=== PATIENT | male | born 1960 | race Caucasian/White ===

== ENCOUNTER 2018-12-07 11:35 | Observation (INO) ==
[2018-12-07] MEDS ORDERED: ALBUTEROL SULFATE/IPRATROPIUM 3 ML NEBU IH ONE (11:58)
--- NOTE | 2018-12-07 12:00 | ERNOTE ---
Dyspnea - General Presenting Symptoms: shortness of breath Time Seen by Provider: 12/07/18 11:50 Source: patient Exam Limitations: no limitations - Immun/Allergies/Home Medications Immunizations: IMMUNIZATION HX Immunizations Up to Date Yes History of Influenza Vaccine No Hx Pneumococcal Vaccination No Allergies/Adverse Reactions: Allergies No Known Allergies Allergy (Verified 12/07/18 14:58) Home Medications: HOME MEDICATIONS Baclofen 20 mg PO BID 04/26/17 [Last Taken Unknown] Sennosides [Senokot] 17.2 mg PO DAILY 04/26/17 [Last Taken Unknown] Baclofen 40 mg PO 1200 05/05/17 [Last Taken Unknown] wheelchair See Dose Instructions .ROUTE .MEDSUPPLY #1 ea 06/01/18 [Last Taken Unknown] tiZANidine HCL [Tizanidine HCl] 8 mg PO HS 06/14/18 [Last Taken Unknown] quetiapine 25 mg tablet 25 mg PO HS #90 tab 06/18/18 [Last Taken Unknown] hydrocodone 5 mg-acetaminophen 325 mg tablet 1 tab PO Q6H PRN #60 tab 07/03/18 [Last Taken Unknown] clopidogrel 75 mg tablet 75 mg PO DAILY #90 tab 07/16/18 [Last Taken Unknown] escitalopram 10 mg tablet 10 mg PO DAILY #90 tab 07/16/18 [Last Taken Unknown] hydrochlorothiazide 12.5 mg tablet 12.5 mg PO DAILY #90 tab 07/16/18 [Last Taken Unknown] warfarin 3 mg tablet 3 mg PO .Monday tab 08/13/18 [Last Taken Unknown] warfarin 5 mg tablet 5 mg PO 6XW #72 tab 08/13/18 [Last Taken Unknown] atorvastatin 40 mg tablet 40 mg PO DAILY #90 tab 09/12/18 [Last Taken Unknown] amlodipine 5 mg tablet 5 mg PO DAILY #30 tab 11/19/18 [Last Taken Unknown] Pregabalin [Lyrica] 100 mg PO BID 12/07/18 [Last Taken Unknown] - History of Present Illness Narrative: Patient is wheel chair bound since having a stroke two years ago. He now has had a productive cough and increasing shortness of breath for 3-4 days, did not have the flue shot. He went to the walk in clinic and was send to the ER as his O2 sat in the low 80%. He is a current smoker, has no prior diagnosis of lung disease He has been on coumadin since his CVA, INR was therapeutic yesterday Initiating event: Reports: upper resp illness Frequency of episodes: Reports: no prior episodes Modifying Factors - (Improves): Reports: nothing Modifying Factors (Worsens): Reports: activity Associated Symptoms-Dyspnea: Reports: fever/chills, cough, wheezing. Denies: c hest pain/discomfort Prior Treatment: Denies: recently seen, currently on antibiotics Review of Systems - Review of Systems Constitutional: Present: chills, malaise. Absent: recent illness ENT: Present: nose congestion. Absent: sore throat Respiratory: Present: See HPI, shortness of breath, cough Cardiology: Absent: chest pain Gastrointestinal/Abdominal: Absent: nausea, vomiting, abdominal pain Genitourinary: Present: no symptoms reported Musculoskeletal: Present: no symptoms reported Neurological: Present: weakness - chronic Medical History (Last Reviewed 12/07/18 @ 12:06 by Josey Ernandez MD) CVA (cerebral vascular accident) Onset Date: ~07/2016 Nerve pain Onset Date: Unknown Pulmonary embolism Onset Date: ~08/2016 Surgical History: Surgical History (Last Reviewed 12/07/18 @ 12:06 by Josey Ernandez MD) History of back surgery Onset Date: Unknown Family History: Family History (Last Reviewed 12/07/18 @ 14:58 by Mckenzie Royal RN) Father Heart disease Heart attack Diabetes Mother Alzheimers disease Myocardial infarction Heart disease Brother Diabetes Sister Myocardial infarction Social History: Preferred Language Croatian Do you have any pentecostal or No cultural preference? Smoking Status Current every day smoker Have you smoked in the past 12 Yes months Do you dip or chew tobacco No Alcohol Use rarely Drug Use none (Last Reviewed 12/07/18 @ 11:09 by Sowmya Gonzales RN) No Social History Section defined Physical Exam - Physical Exam General Appearance: Present: wd/wn, alert, mild distress, anxious Eye Exam: Normal inspection: bilateral Ears, Nose, Throat: Present: normal ENT inspection, normal pharynx Neck: Present: normal inspection Respiratory: Present: decreased breath sounds, expiration (prolonged), wheezing - more on right than left Cardiovascular/Chest: Present: regular rate, rhythm, no murmur Gastrointestinal/Abdominal: Present: normal bowel sounds, nontender Extremity Exam: Present: no edema Neurological Exam: Present: alert, oriented, normal mood/affect Skin Exam: Present: normal color, warm/dry Progress - Results and Orders Patient's Lab Results:: I have reviewed the patient's lab results. - Vital Signs Patient's Vital Signs:: I have reviewed the patient's vital signs. Vital Signs: Vital Signs 12/07/18 11:53 Temperature 37.9 C Pulse Rate 88 Respiratory Rate 20 Blood Pressure 140/77 O2 Sat by Pulse Oximetry 80 L - EKG EKG #1 EKG: NSR, RBBB EKG read: Interp. by me - X-Ray X-Ray #1 X-Ray: chest - Central bronchial wall prominence noted. Correlate clinically for acute or chronic bronchitis or reactive airways disease. Interpretation: Reviewed by me - Progress/Reassessment Chief Complaint: Dyspnea Progress Note-Subjective: 12/07/18 13:22 discussed test results with patient and family, agreed to admission 12/07/18 13:[address] Guidry 12/07/18 13:[address] Guidry, okay to admit for observation, start pneumonia PSI 70, class II Departure Clinical Impression: Acute respiratory failure with hypoxia Pneumonia Qualifiers: Pneumonia type: due to unspecified organism Laterality: right Lung location: unspecified part of lung Qualified Code(s): J18.9 - Pneumonia, unspecified organism - Departure Disposition: Still a patient Condition: Stable
[2018-12-07 12:24] LABS: Hemoglobin 15.1 gm/dL (13.5-18.0); Mean Cell Volume 86.4 fl (78-100); Mean Corpuscular Hgb Conc 33.6 g/dl (32-36); Mean Platelet Volume 8.7 fl (8-11.3); Platelet Count 179 K/mm3 (150-450); Red Blood Count 5.21 M/mm3 (4.7-6.0); Red Cell Distribution Width 14.3 % (11.5-14.0); White Blood Count 5.4 K/mm3 (4.0-10.5)
[2018-12-07 12:27] LABS: Total Cells Counted 100
[2018-12-07 12:40] LABS: Atypical (Reactive) Lymph 2 % (0-2); Lymphocyte 14 % (20-51); Monocyte 5 % (0-9); Neutrophil 79 % (42-75); Neutrophil # 4.3 K/mm3 (1.3-6.0); Platelet Estimate Normal (NORMAL)
[2018-12-07 12:41] LABS: RBC Morphology Normal (NORMAL)
[2018-12-07 12:47] LABS: Troponin I Less than 0.017 ng/mL (0.00-0.10)
[2018-12-07 12:48] LABS: ALT 44 U/L (19-67); AST 55 U/L (0-48); Albumin * 3.6 gm/dl (3.4-5.0); Alkaline Phosphatase * 72 U/L (50-170); BNP * 254 pg/mL (5-175); BUN/Creatinine Ratio 14.4 (9.0-21.6); Bilirubin, Total 0.8 mg/dL (0.0-1.1); Blood Urea Nitrogen 16 mg/dL (6-23); Ca. Corrected For Albumin 8.5 mg/dL (8.4-10.2); Calcium * 8.5 mg/dL (7.9-10.9); Carbon Dioxide 36.9 mmol/L (24-32.6); Chloride 96 mmol/L (97-106); Glucose * 121 mg/dL (70-110); Potassium 2.9 mmol/L (3.4-4.6); Sodium 139 mmol/L (132-142); Total Protein 7.9 gm/dL (6.2-8.2)
[2018-12-07] MEDS ORDERED: cefTRIAXone SODIUM 1,000 MG/100 ML BAG IV ONE (13:50)
[2018-12-07] MEDS ORDERED: AZITHROMYCIN 250 MG TABLET PO STA (13:59)
[2018-12-07] MEDS ORDERED: ALBUTEROL SULFATE 2.5 MG/0.5 ML VIAL.NEB IH PRN (14:32)
--- NOTE | 2018-12-07 15:19 | HP ---
Chief Complaint - Chief Complaint Date of Service: 12/07/18 Time of Service: 15:18 Chief Complaint: "can't breathe" History of Present Illness: Patient with PMHx of previous CVA with residual left sided weakness requiring wheelchair for mobility. He has had several days of dyspnea and productive cough. He denies fevers. He has audible upper respiratory sounds, and feels like he has excess mucus, but is unable to cough it up. He is requiring the use of oxygen, which he does not use at home. He had some nausea earlier, and an episode of diarrhea a few days ago. He feels like his legs are swelling. Denies chest pain, dysuria, or skin problems that he is aware of. Medical History (Last Reviewed 12/07/18 @ 14:58 by Mckenzie Royal RN) CVA (cerebral vascular accident) Onset Date: ~07/2016 Nerve pain Onset Date: Unknown Pulmonary embolism Onset Date: ~08/2016 Surgical History: Surgical History (Last Reviewed 12/07/18 @ 14:58 by Mckenzie Royal RN) History of back surgery Onset Date: Unknown Family History: Family History (Last Reviewed 12/07/18 @ 14:58 by Mckenzie Royal RN) Father Heart disease Heart attack Diabetes Mother Alzheimers disease Myocardial infarction Heart disease Brother Diabetes Sister Myocardial infarction Social History: Preferred Language North Korean Do you have any sabianism or No cultural preference? Smoking Status Current every day smoker Have you smoked in the past 12 Yes months Do you dip or chew tobacco No Alcohol Use rarely Drug Use none (Last Reviewed 12/07/18 @ 11:09 by Sowmya Gonzales RN) No Social History Section defined Review Of Systems (GEN) - Review of Systems Generalized/Overall Review: Absent: Fever Respiratory: Present: Cough, Shortness of Breath Cardiac: Present: Edema. Absent: Chest Pain Abdominal: Present: Nausea, Diarrhea. Absent: Vomiting Genitourinary: Absent: Dysuria Skin: Present: No Symptoms Reported Immunizations: IMMUNIZATION HX Immunizations Up to Date Yes History of Influenza Vaccine No Hx Pneumococcal Vaccination No Allergies/Adverse Reactions: Allergies Allergy/AdvReac Type Severity Reaction Status Date / Time No Known Allergies Allergy Verified 12/07/18 14:58 Home Medications: HOME MEDICATIONS Baclofen 20 mg PO BID@0700,1200 08/02/17 [Last Taken Unknown] Escitalopram Oxalate [Lexapro] 10 mg PO DAILY 04/26/17 [Last Taken Unknown] Sennosides [Senokot] 17.2 mg PO DAILY 04/26/17 [Last Taken Unknown] Baclofen 40 mg PO HS 05/05/17 [Last Taken Unknown] wheelchair See Dose Instructions .ROUTE .MEDSUPPLY #1 ea 06/01/18 [Last Taken Unknown] tiZANidine HCL [Tizanidine HCl] 8 mg PO HS 06/14/18 [Last Taken Unknown] quetiapine 25 mg tablet 25 mg PO HS #90 tab 06/18/18 [Last Taken Unknown] hydrocodone 5 mg-acetaminophen 325 mg tablet 1 tab PO Q6H PRN #60 tab 07/03/18 [Last Taken Unknown] clopidogrel 75 mg tablet 75 mg PO DAILY #90 tab 07/16/18 [Last Taken Unknown] escitalopram 10 mg tablet 10 mg PO DAILY #90 tab 07/16/18 [Last Taken Unknown] hydrochlorothiazide 12.5 mg tablet 12.5 mg PO DAILY #90 tab 07/16/18 [Last Taken Unknown] warfarin 3 mg tablet 3 mg PO .Monday tab 08/13/18 [Last Taken Unknown] warfarin 5 mg tablet 5 mg PO 6XW #72 tab 08/13/18 [Last Taken Unknown] atorvastatin 40 mg tablet 40 mg PO DAILY #90 tab 09/12/18 [Last Taken Unknown] pregabalin 100 mg capsule See Rx Instructions .ROUTE .COMPLEX #60 unspecified 11/16/18 [Last Taken Unknown] amlodipine 5 mg tablet 5 mg PO DAILY #30 tab 11/19/18 [Last Taken Unknown] Exam - Exam Vital Signs: Vital Signs - Last Taken Temp 37.9 C 12/07/18 11:53 Pulse 89 12/07/18 14:05 Resp 20 12/07/18 14:05 BP 130/64 12/07/18 14:05 Pulse Ox 94 12/07/18 14:05 Constitutional: Present: Alert, Cooperative Respiratory: Present: no accessory muscle use, rhonchi - right lung Cardiovascular/Chest: Present: regular rate, rhythm Abdomen: Present: soft, nontender, distended Extremity: Absent: lower extremity edema Neurologic: Present: other - does not move left arm Eye contact: Present: cooperative Diagnostic Studies: Abnormal Lab Results 12/07/18 12/07/18 12/07/18 Range/Units 12: 12:20 12:20 RDW 14.3 H (11.5-14.0) % Neutrophils % (Manual) 79 H (42-75) % Lymphocytes % (Manual) 14 L (20-51) % Lymphocytes # (Manual) 0.8 L (1.5-3.5) k/mm3 pO2 110.3 H (83.0-108.0) mmHg HCO3 34.1 H (21.0-28.0) mmol/L Total CO2 35.5 H (19.0-24.0) mmol/L Base Excess 8.9 H (-2.0-3.0) mmol/L ABG pH 7.47 H (7.35-7.45) ABG O2 Sat (Measured) 98.2 H (94.0-98.0) % Potassium 2.9 L (3.4-4.6) mmol/L Chloride 96 L (97-106) mmol/L Carbon Dioxide 36.9 H (24-32.6) mmol/L Random Glucose 121 H (70-110) mg/dL AST 55 H (0-48) U/L B-Natriuretic Peptide 254 H (5-175) pg/mL Laboratory Results WBC 5.4 K/mm3 (4.0-10.5) 12/07/18 12:20 RBC 5.21 M/mm3 (4.7-6.0) 12/07/18 12:20 Hgb 15.1 gm/dL (13.5-18.0) 12/07/18 12:20 Hct 45.0 % (42.0-52.0) 12/07/18 12:20 MCV 86.4 fl (78-100) 12/07/18 12:20 MCH 29.0 pg (27-31) 12/07/18 12:20 MCHC 33.6 g/dl (32-36) 12/07/18 12:20 RDW 14.3 % (11.5-14.0) H 12/07/18 12:20 Plt Count 179 K/mm3 (150-450) 12/07/18 12:20 MPV 8.7 fl (8-11.3) 12/07/18 12:20 Neutrophils % (Manual) 79 % (42-75) H 12/07/18 12:20 Lymphocytes % (Manual) 14 % (20-51) L 12/07/18 12:20 Monocytes % (Manual) 5 % (0-9) 12/07/18 12:20 Neutrophils # (Manual) 4.3 K/mm3 (1.3-6.0) 12/07/18 12:20 Lymphocytes # (Manual) 0.8 k/mm3 (1.5-3.5) L 12/07/18 12:20 Monocytes # (Manual) 0.3 k/mm3 (0.0-1.0) 12/07/18 12:20 Atypic/Reactive Lymphs 2 % (0-2) 12/07/18 12:20 Platelet Estimate Normal (NORMAL) 12/07/18 12:20 RBC Morphology Normal (NORMAL) 12/07/18 12:20 pCO2 48.0 mmHg (35.0-48.0) 12/07/18 12:20 pO2 110.3 mmHg (83.0-108.0) H 12/07/18 12:20 HCO3 34.1 mmol/L (21.0-28.0) H 12/07/18 12:20 Total CO2 35.5 mmol/L (19.0-24.0) H 12/07/18 12:20 Base Excess 8.9 mmol/L (-2.0-3.0) H 12/07/18 12:20 ABG pH 7.47 (7.35-7.45) H 12/07/18 12:20 ABG O2 Sat (Measured) 98.2 % (94.0-98.0) H 12/07/18 12:20 Sodium 139 mmol/L (132-142) 12/07/18 12:20 Plasma Sodium 139 mmol/L (130-142) 12/07/18 12:20 Potassium 2.9 mmol/L (3.4-4.6) L 12/07/18 12:20 Chloride 96 mmol/L (97-106) L 12/07/18 12:20 Carbon Dioxide 36.9 mmol/L (24-32.6) H 12/07/18 12:20 Anion Gap 9.0 mmol/L (6.8-13.8) 12/07/18 12:20 BUN 16 mg/dL (6-23) 12/07/18 12:20 Creatinine 1.11 mg/dL (0.4-1.4) 12/07/18 12:20 Est GFR (Non-Af Amer) 72 mL/min (60-130) 12/07/18 12:20 BUN/Creatinine Ratio 14.4 (9.0-21.6) 12/07/18 12:20 Random Glucose 121 mg/dL (70-110) H 12/07/18 12:20 Lactic Acid, Venous 1.4 mmol/L (0.4-2.0) 12/07/18 12:20 Calcium 8.5 mg/dL (7.9-10.9) 12/07/18 12:20 Calcium Adj for Albumin 8.5 mg/dL (8.4-10.2) 12/07/18 12:20 Total Bilirubin 0.8 mg/dL (0.0-1.1) 12/07/18 12:20 AST 55 U/L (0-48) H 12/07/18 12:20 ALT 44 U/L (19-67) 12/07/18 12:20 Alkaline Phosphatase 72 U/L (50-170) 12/07/18 12:20 Troponin I Less than 0.017 ng/mL (0.00-0.10) 12/07/18 12:20 B-Natriuretic Peptide 254 pg/mL (5-175) H 12/07/18 12:20 Total Protein 7.9 gm/dL (6.2-8.2) 12/07/18 12:20 Albumin 3.6 gm/dl (3.4-5.0) 12/07/18 12:20 Procalcitonin 0.11 ng/mL (0.05-0.50) 12/07/18 12:17 Influenza Type A Ag Negative (NEGATIVE) 12/07/18 12:21 Influenza Type B Ag Negative (NEGATIVE) 12/07/18 12:21 Assessment/Plan - Assessment/Plan (1) Pneumonia Assessment: He reports having trouble breathing for several days, and choked on food after his breathing difficulty started. Viral panel negative. Procalcitonin not elevated, indicated bacterial infection unlikely. However, with his lungs sounds on exam, history of cough and dyspnea, and increased oxygen requirement, will treat for pneumonia. Given his CVA history and decreased mobility, will cover for aspiration and atypical pneumonia with augmentin and doxycycline. Will DC azithromycin due to his prolonged QT. Was given Rocephin in the ED. His oxygen requirement has improved since he was in the ED, and will wean as tolerated. Will administer 125 mg solumedrol. Anticipate potential two midnight stay to wean oxygen and antibiotic management. Problem: Acute Qualifiers: Pneumonia type: due to unspecified organism Laterality: right Lung location: unspecified part of lung Qualified Code(s): J18.9 - Pneumonia, unspecified organism (2) Hypertension Assessment: He is prescribed amlodipine and HCTZ, and will continue. Problem: Chronic Qualifiers: Hypertension type: essential hypertension Qualified Code(s): I10 - Essential (primary) hypertension (3) Hypokalemia Assessment: Potassium of 2.9. If he is able to swallow, will administer po replacement, and if not, will give IV and recheck in the morning. Problem: Acute (4) A-fib Assessment: Patient was unaware of this diagnosis. Heart sounds and radial pulse are regular. EKG shows RBBB, prolonged [place], and prolonged QT, but he is in sinus rhythm. He is anticoagulated, but does not think he's had blood clots. INR was within range yesterday, at 2.59. It does not look like he is on rate control medications, but his rate is appropriate at 93. Problem: Chronic Qualifiers: Atrial fibrillation type: chronic Qualified Code(s): I48.2 - Chronic atrial fibrillation (5) History of pulmonary embolism Assessment: Continue coumadin. Problem: Chronic (6) History of CVA (cerebrovascular accident) Assessment: He is unable to walk, and does not have his wheelchair here. Problem: Chronic
[2018-12-07] MEDS ORDERED: METHYLPREDNISOLONE SOD SUCC/PF 40 MG/ML VIAL IV ONE (16:13)
[2018-12-07] MEDS: POTASSIUM CHLORIDE 20 MEQ TABLET.SA PO SCH (16:46)
[2018-12-07] MEDS: ALBUTEROL SULFATE/IPRATROPIUM 3 ML NEBU IH SCH (18:00)
[2018-12-07] MEDS: HYDROcodone/ACETAMINOPHEN 1 EACH TABLET PO PRN (20:27)
[2018-12-07] MEDS: QUEtiapine FUMARATE 25 MG TABLET PO SCH (20:27)
[2018-12-07] MEDS: PREGABALIN 50 MG CAPSULE PO SCH (20:27)
[2018-12-07] MEDS: BACLOFEN 10 MG TABLET PO SCH (20:28)
[2018-12-07] MEDS: tiZANidine HCL 4 MG TABLET PO SCH (20:29)
[2018-12-08] MEDS: ALBUTEROL SULFATE/IPRATROPIUM 3 ML NEBU IH SCH ×4 (00:11→18:01)
[2018-12-08 06:35] LABS: Anion Gap 8.4 mmol/L (6.8-13.8); BUN/Creatinine Ratio 16.3 (9.0-21.6); Calcium * 8.3 mg/dL (7.9-10.9); Carbon Dioxide 35.5 mmol/L (24-32.6); Estimated Creat Clear 65.7; Potassium 2.9 mmol/L (3.4-4.6)
[2018-12-08] MEDS: HYDROcodone/ACETAMINOPHEN 1 EACH TABLET PO PRN ×2 (07:04→13:45)
[2018-12-08] MEDS: POTASSIUM CHLORIDE IN WATER 100 ML IV SCH ×4 (08:47→15:00)
[2018-12-08] MEDS: POTASSIUM CHLORIDE 20 MEQ TABLET.SA PO SCH ×2 (08:48→16:59)
[2018-12-08] MEDS: SENNOSIDES 8.6 MG TABLET PO SCH (08:48)
[2018-12-08] MEDS: DOXYCYCLINE HYCLATE 100 MG TABLET PO SCH ×2 (08:48→20:52)
[2018-12-08] MEDS: amLODIPine BESYLATE 5 MG TABLET PO SCH (08:48)
[2018-12-08] MEDS: BACLOFEN 10 MG TABLET PO SCH ×3 (08:48→20:51)
[2018-12-08] MEDS: ESCITALOPRAM OXALATE 10 MG TAB PO SCH (08:48)
[2018-12-08] MEDS: CLOPIDOGREL BISULFATE 75 MG TABLET PO SCH (08:49)
[2018-12-08] MEDS: HYDROCHLOROTHIAZIDE 12.5 MG CAPSULE PO SCH (08:49)
[2018-12-08] MEDS: predniSONE 20 MG TABLET PO SCH (08:49)
[2018-12-08] MEDS: PREGABALIN 50 MG CAPSULE PO SCH ×2 (08:51→20:57)
[2018-12-08] MEDS ORDERED: AZITHROMYCIN 250 MG TABLET PO SCH (09:00)
--- NOTE | 2018-12-08 12:32 | PN ---
Subjective - Date and Time Seen Date: 12/08/18 Time: 12:21 Subjective Narrative: Patient reports feeling better than yesterday. His breathing is no longer as audible. His nurse does report choking with his breakfast of biscuits and gravy. He states he chokes on bread occasionally. His potassium did not improve with po replacement. Objective - Review of Systems Generalized/Overall Review: Denies: Fever Respiratory: Reports: Cough, Shortness of Breath. Denies: Wheezing Cardiac: Denies: Chest Pain, Palpitations Abdominal: Denies: Vomiting Neurological: Reports: Pre-existing Deficit - left sided weakness from previous CVA - Vitals Vitals: Last Vital Signs Temp 36.8 C 12/08/18 11:20 Pulse 89 12/08/18 11:20 Resp 20 12/08/18 11:20 BP 119/76 12/08/18 11:20 Pulse Ox 92 L 12/08/18 11:20 - Abnormal Lab Findings Abnormal Lab Findings: Abnormal Lab Results 12/07/18 12/07/18 12/07/18 Range/Units 12:20 12:20 12:20 RDW 14.3 H (11.5-14.0) % Neutrophils % (Manual) 79 H (42-75) % Lymphocytes % (Manual) 14 L (20-51) % Lymphocytes # (Manual) 0.8 L (1.5-3.5) k/mm3 pO2 110.3 H (83.0-108.0) mmHg HCO3 34.1 H (21.0-28.0) mmol/L Total CO2 35.5 H (19.0-24.0) mmol/L Base Excess 8.9 H (-2.0-3.0) mmol/L ABG pH 7.47 H (7.35-7.45) ABG O2 Sat (Measured) 98.2 H (94.0-98.0) % Potassium 2.9 L (3.4-4.6) mmol/L Chloride 96 L (97-106) mmol/L Carbon Dioxide 36.9 H (24-32.6) mmol/L Random Glucose 121 H (70-110) mg/dL AST 55 H (0-48) U/L B-Natriuretic Peptide 254 H (5-175) pg/mL 12/08/18 Range/Units 06:10 RDW (11.5-14.0) % Neutrophils % (Manual) (42-75) % Lymphocytes % (Manual) (20-51) % Lymphocytes # (Manual) (1.5-3.5) k/mm3 pO2 (83.0-108.0) mmHg HCO3 (21.0-28.0) mmol/L Total CO2 (19.0-24.0) mmol/L Base Excess (-2.0-3.0) mmol/L ABG pH (7.35-7.45) ABG O2 Sat (Measured) (94.0-98.0) % Potassium 2.9 L (3.4-4.6) mmol/L Chloride (97-106) mmol/L Carbon Dioxide 35.5 H (24-32.6) mmol/L Random Glucose 211 H D (70-110) mg/dL AST (0-48) U/L B-Natriuretic Peptide (5-175) pg/mL - Exam Constitutional: Present: Alert, Cooperative, No distress Respiratory: Present: rales - on right, improved from yesterday Cardiovascular/Chest: Present: regular rate, rhythm Abdomen: Present: soft, nontender Extremity: Absent: lower extremity edema Neurologic: Present: motor weakness - left sided Assessment/Plan - Problems/Diagnosis (1) Pneumonia Problem: Acute Qualifiers: Pneumonia type: due to unspecified organism Laterality: right Lung location: unspecified part of lung Qualified Code(s): J18.9 - Pneumonia, unspecified organism Narrative: With his increased shortness of breath, cough, oxygen requirement, he is being treated for atypical and aspiration pneumonia. Received a dose of rocephin in the ED, and doxycycline & augmentin were started yesterday evening. Continue albuterol and prednisone. He has some choking with swallowing, and would recommend a swallow evaluation, unfortunately it's the weekend and can not be done today. He was able to swallow water without difficulty yesterday. (2) Hypokalemia Problem: Acute Narrative: Potassium did not improve despite replacement with 40 mEq po. will administer 40 mEq IV and recheck this afternoon. (3) Hypertension Problem: Chronic Qualifiers: Hypertension type: essential hypertension Qualified Code(s): I10 - Essential (primary) hypertension Narrative: Continue home amlodipine. Hold for BP less than 110/70 consistently. (4) A-fib Problem: Chronic Qualifiers: Atrial fibrillation type: chronic Qualified Code(s): I48.2 - Chronic atrial fibrillation Narrative: May be paroxysmal, because he was in sinus rhythm on admission. He is anticoagulated, and his most recent INR was 2.59 on 12/06. (5) History of pulmonary embolism Problem: Chronic (6) History of CVA (cerebrovascular accident) Problem: Chronic Narrative: Has residual left sided weakness, and is unable to walk. (7) Hemiparesis affecting left side as late effect of stroke Problem: Acute
[2018-12-08 16:27] LABS: Anion Gap 9.8 mmol/L (6.8-13.8); BUN/Creatinine Ratio 17.6 (9.0-21.6); Calcium * 8.8 mg/dL (7.9-10.9); Carbon Dioxide 33.5 mmol/L (24-32.6); Potassium 3.3 mmol/L (3.4-4.6)
[2018-12-08] MEDS ORDERED: WARFARIN SODIUM 5 MG TABLET PO SCH (17:00)
[2018-12-08] MEDS: ROSUVASTATIN CALCIUM 20 MG TABLET PO SCH (20:51)
[2018-12-08] MEDS: QUEtiapine FUMARATE 25 MG TABLET PO SCH (20:52)
[2018-12-08] MEDS: tiZANidine HCL 4 MG TABLET PO SCH (20:53)
[2018-12-09] MEDS: ALBUTEROL SULFATE/IPRATROPIUM 3 ML NEBU IH SCH ×4 (00:09→18:01)
[2018-12-09 06:20] LABS: Anion Gap 4.8 mmol/L (6.8-13.8); BUN/Creatinine Ratio 19.2 (9.0-21.6); Calcium * 8.6 mg/dL (7.9-10.9); Carbon Dioxide 31.3 mmol/L (24-32.6); Potassium 3.1 mmol/L (3.4-4.6); Prothrombin Time (Patient) 31.3 Seconds (9.1-10.7)
[2018-12-09 06:26] LABS: INR 3.31 INR (0.92-1.08)
[2018-12-09] MEDS: POTASSIUM CHLORIDE 20 MEQ TABLET.SA PO SCH ×3 (08:11→16:58)
[2018-12-09] MEDS: POTASSIUM CHLORIDE IN WATER 100 ML IV SCH ×4 (08:11→12:04)
[2018-12-09] MEDS: HYDROCHLOROTHIAZIDE 12.5 MG CAPSULE PO SCH (08:12)
[2018-12-09] MEDS: DOXYCYCLINE HYCLATE 100 MG TABLET PO SCH ×2 (08:12→21:02)
[2018-12-09] MEDS: predniSONE 20 MG TABLET PO SCH (08:12)
[2018-12-09] MEDS: CLOPIDOGREL BISULFATE 75 MG TABLET PO SCH (08:13)
[2018-12-09] MEDS: amLODIPine BESYLATE 5 MG TABLET PO SCH (08:13)
[2018-12-09] MEDS: ESCITALOPRAM OXALATE 10 MG TAB PO SCH (08:13)
[2018-12-09] MEDS: BACLOFEN 10 MG TABLET PO SCH ×3 (08:13→21:01)
[2018-12-09] MEDS: SENNOSIDES 8.6 MG TABLET PO SCH (08:13)
[2018-12-09] MEDS: PREGABALIN 50 MG CAPSULE PO SCH ×2 (08:25→21:01)
[2018-12-09] MEDS ORDERED: BENZONATATE 100 MG CAPSULE PO PRN ×2 (11:25→14:40)
--- NOTE | 2018-12-09 11:29 | PN ---
Subjective - Date and Time Seen Date: 12/09/18 Time: 11:19 Subjective Narrative: Patient reports feeling lightheaded this morning. He is eating and drinking okay. His cough continues, he is interested in trying Tessalon Perles. Objective - Review of Systems Generalized/Overall Review: Denies: Fever Respiratory: Reports: Cough, Shortness of Breath, Wheezing Cardiac: Denies: Chest Pain, Edema Abdominal: Denies: Nausea, Vomiting Genitourinary Symptoms: Reports: No Symptoms Reported Neurological: Reports: Pre-existing Deficit - Left-sided weakness - Vitals Vitals: Last Vital Signs Temp 36.6 C 12/09/18 09:56 Pulse 85 12/09/18 09:56 Resp 20 12/09/18 09:56 BP 144/60 12/09/18 09:56 Pulse Ox 93 12/09/18 09:56 - Abnormal Lab Findings Abnormal Lab Findings: Abnormal Lab Results 12/08/18 12/09/18 12/09/18 Range/Units 16:16 06:00 06:00 PT 31.3 H (9.1-10.7) Seconds INR (Anticoag Therapy) 3.31 H (0.92-1.08) INR Potassium 3.3 L 3.1 L (3.4-4.6) mmol/L Carbon Dioxide 33.5 H (24-32.6) mmol/L Anion Gap 4.8 L (6.8-13.8) mmol/L Random Glucose 287 H D 158 H D (70-110) mg/dL - Exam Constitutional: Present: Alert, Oriented x3 Respiratory: Present: no respiratory distress, rhonchi - Right-sided, improves with clearing of throat, other Cardiovascular/Chest: Present: regular rate, rhythm Abdomen: Present: soft, nontender Extremity: Absent: lower extremity edema Neurologic: Present: normal mood/affect, motor weakness - Left-sided Assessment/Plan - Problems/Diagnosis (1) Pneumonia Problem: Acute Qualifiers: Pneumonia type: due to unspecified organism Laterality: right Lung location: unspecified part of lung Qualified Code(s): J18.9 - Pneumonia, unspecified organism Narrative: Likely secondary to aspiration and atypical pneumonia. We will continue Augmentin and doxycycline. Is currently oxygenating at 93% on room air. His cough persists, and he is interested in Tessalon Perles. He has some choking with swallowing, and was reminded to do the chin tuck method and take his time with eating. He has had some swallowing difficulty ever since having a severe CVA several years ago. (2) Hypokalemia Problem: Acute Narrative: Potassium of 3.1 this morning, despite K-Dur 3 times a day and 40 mEq potassium given IV yesterday. We will repeat the 40 mEq IV potassium and recheck this afternoon. (3) Hypertension Problem: Chronic Qualifiers: Hypertension type: essential hypertension Qualified Code(s): I10 - Essential (primary) hypertension Narrative: Well-controlled. Continue home amlodipine. (4) A-fib Problem: Chronic Qualifiers: Atrial fibrillation type: chronic Qualified Code(s): I48.2 - Chronic atrial fibrillation (5) History of pulmonary embolism Problem: Chronic Narrative: He is anticoagulated with Coumadin. His INR was 3.31 yesterday, and will hold today's Coumadin dose and resume tomorrow. (6) History of CVA (cerebrovascular accident) Problem: Chronic (7) Hemiparesis affecting left side as late effect of stroke Problem: Chronic Narrative: Continue home pain medicine, Lyrica, and baclofen.
[2018-12-09 15:05] LABS: Anion Gap 12.8 mmol/L (6.8-13.8); BUN/Creatinine Ratio 17.6 (9.0-21.6); Calcium * 9.1 mg/dL (7.9-10.9); Carbon Dioxide 29.2 mmol/L (24-32.6)
[2018-12-09] MEDS: ROSUVASTATIN CALCIUM 20 MG TABLET PO SCH (21:01)
[2018-12-09] MEDS: QUEtiapine FUMARATE 25 MG TABLET PO SCH (21:02)
[2018-12-09] MEDS: tiZANidine HCL 4 MG TABLET PO SCH (21:03)
[2018-12-09] MEDS: HYDROcodone/ACETAMINOPHEN 1 EACH TABLET PO PRN (21:20)
[2018-12-10] MEDS: ALBUTEROL SULFATE/IPRATROPIUM 3 ML NEBU IH SCH ×2 (00:13→06:01)
[2018-12-10 06:37] LABS: Anion Gap 14.7 mmol/L (6.8-13.8); BUN/Creatinine Ratio 17.8 (9.0-21.6); Calcium * 8.4 mg/dL (7.9-10.9); Carbon Dioxide 27.4 mmol/L (24-32.6); Estimated Creat Clear 75.9; INR 3.81 INR (0.92-1.08); Potassium 4.1 mmol/L (3.4-4.6); Prothrombin Time (Patient) 35.8 Seconds (9.1-10.7)
[2018-12-10] MEDS: PREGABALIN 50 MG CAPSULE PO SCH (08:12)
[2018-12-10] MEDS: BACLOFEN 10 MG TABLET PO SCH (08:13)
[2018-12-10] MEDS: DOXYCYCLINE HYCLATE 100 MG TABLET PO SCH (08:13)
[2018-12-10] MEDS: POTASSIUM CHLORIDE 20 MEQ TABLET.SA PO SCH (08:13)
[2018-12-10] MEDS: predniSONE 20 MG TABLET PO SCH (08:13)
[2018-12-10] MEDS: CLOPIDOGREL BISULFATE 75 MG TABLET PO SCH (08:13)
[2018-12-10] MEDS: HYDROCHLOROTHIAZIDE 12.5 MG CAPSULE PO SCH (08:14)
[2018-12-10] MEDS: amLODIPine BESYLATE 5 MG TABLET PO SCH (08:14)
[2018-12-10] MEDS: SENNOSIDES 8.6 MG TABLET PO SCH (08:14)
[2018-12-10] MEDS: ESCITALOPRAM OXALATE 10 MG TAB PO SCH (08:14)
--- NOTE | 2018-12-10 08:40 | DS ---
(1) Pneumonia Problem: Acute Qualifiers: Pneumonia type: due to unspecified organism Laterality: right Lung location: unspecified part of lung Qualified Code(s): J18.9 - Pneumonia, unspecified organism (2) Hypokalemia Problem: Acute (3) Hypertension Problem: Chronic Qualifiers: Hypertension type: essential hypertension Qualified Code(s): I10 - Essential (primary) hypertension (4) A-fib Problem: Chronic Qualifiers: Atrial fibrillation type: chronic Qualified Code(s): I48.2 - Chronic atrial fibrillation (5) History of pulmonary embolism Problem: Chronic (6) History of CVA (cerebrovascular accident) Problem: Chronic (7) Hemiparesis affecting left side as late effect of stroke Problem: Chronic Description of Stay: Patient with PMHx of previous CVA with residual left sided weakness requiring wheelchair for mobility. He has had several days of dyspnea and productive cough. He denies fevers. He has audible upper respiratory sounds, and feels like he has excess mucus, but is unable to cough it up. He is requiring the use of oxygen, which he does not use at home. He had some nausea earlier, and an episode of diarrhea a few days ago. He has intermittent choking when eating, which has been present since his stroke. He feels like his legs are swelling. Denies chest pain, dysuria, or skin problems that he is aware of. Clinically, he had pneumonia with cough, increased oxygen requirements, and right sided rhonchi, but his CXR was negative and WBC not elevated. He was admitted on 12/07, and started Rocephin and doxycycline to cover for both aspiration pneumonia and atypical pneumonia. Augmentin was to have been star cait, but on reviewing DC orders, this was not actually done. Family member reports he does have a habit of eating his food too fast, and does not commonly do the chin tuck method of swallowing. Will order further swallowing evaluation to be done after discharge. He required oxygen for approximately 2 days. Discharge was done 12/10. He had some hypokalemia during his stay, requiring replacement with IV potassium chloride. Potassium on discharge was 4.1. He is prescribed warfarin for A. fib. His INR is usually stable, however increased during his stay. His warfarin was held on 12/09 and 12/10, and will resume on 12/11 and recheck at follow-up. Procedures Performed: none Results and Findings: Pending Mircobiology Results 12/07/18 12:51 Blood Blood Culture - Preliminary NO GROWTH AFTER 48 HOURS 12/07/18 12:20 Blood Blood Culture - Preliminary NO GROWTH AFTER 48 HOURS Lab Pending Results 12/07/18 12:17: Procalcitonin 0.11 12/07/18 12:20: WBC 5.4, RBC 5.21, Hgb 15.1, Hct 45.0, MCV 86.4, MCH 29.0, MCHC 33.6, RDW 14.3 H, Plt Count 179, MPV 8.7, Neutrophils % (Manual) 79 H, Lymphocytes % (Manual) 14 L, Monocytes % (Manual) 5, Neutrophils # (Manual) 4.3, Lymphocytes # (Manual) 0.8 L, Monocytes # (Manual) 0.3, Atypic/Reactive Lymphs 2, Platelet Estimate Normal, RBC Morphology Normal 12/07/18 12:20: pCO2 48.0, pO2 110.3 H, HCO3 34.1 H, Total CO2 35.5 H, Base Excess 8.9 H, ABG pH 7.47 H, ABG O2 Sat (Measured) 98.2 H 12/07/18 12:20: Sodium 139, Plasma Sodium 139, Potassium 2.9 L, Chloride 96 L, Carbon Dioxide 36.9 H, Anion Gap 9.0, BUN 16, Creatinine 1.11, Est GFR (Non-Af Amer) 72, BUN/Creatinine Ratio 14.4, Random Glucose 121 H, Calcium 8.5, Calcium Adj for Albumin 8.5, Total Bilirubin 0.8, AST 55 H, ALT 44, Alkaline Phosphatase 72, Troponin I Less than 0.017, B-Natriuretic Peptide 254 H, Total Protein 7.9, Albumin 3.6 12/07/18 12:20: Lactic Acid, Venous 1.4 12/07/18 12:21: Influenza Type A Ag Negative, Influenza Type B Ag Negative 12/07/18 : Chlamy pneumoniae PCR Not detected, Adenovirus (PCR) Not detected, B. pertussis DNA (PCR) Not detected, Coronavirus OC43 (PCR) Not detected, Coronavirus HKU1 (PCR) Not detected, Coronavirus 229E (PCR) Not detected, Coronavirus NL63 (PCR) Not detected, Human Metapneumovir PCR Not detected, Influenza A (H1) PCR Not detected, Influenza A (H1N1) PCR Not detected, Influenza A (H3) PCR Not detected, Influenza B (RT-PCR) Not detected, M. pneumoniae (PCR) Not detected, Parainfluenza 1 (PCR) Not detected, Parainfluenza 2 (PCR) Not detected, Parainfluenza 3 (PCR) Not detected, Parainfluenza 4 (PCR) Not detected, RSV (PCR) Not detected, Rhinovirus (PCR) Not detected 12/08/18 06:10: Sodium 139, Plasma Sodium 141, Potassium 2.9 L, Chloride 98, Carbon Dioxide 35.5 H, Anion Gap 8.4, BUN 17, Creatinine 1.04, Est GFR (Non-Af Amer) 77, BUN/Creatinine Ratio 16.3, Random Glucose 211 H D, Calcium 8.3 12/08/18 16:16: Sodium 138, Plasma Sodium 141, Potassium 3.3 L, Chloride 98, Carbon Dioxide 33.5 H, Anion Gap 9.8, BUN 18, Creatinine 1.02, Est GFR (Non-Af Amer) 79, BUN/Creatinine Ratio 17.6, Random Glucose 287 H D, Calcium 8.8 12/09/18 06:00: PT 31.3 H, INR (Anticoag Therapy) 3.31 H 12/09/18 06:00: Sodium 132, Plasma Sodium 133, Potassium 3.1 L, Chloride 99, Carbon Dioxide 31.3, Anion Gap 4.8 L, BUN 19, Creatinine 0.99, Est GFR (Non-Af Amer) 82, BUN/Creatinine Ratio 19.2, Random Glucose 158 H D, Calcium 8.6 12/09/18 14:50: Sodium 139, Plasma Sodium 142, Potassium 4.0 D, Chloride 101, Carbon Dioxide 29.2, Anion Gap 12.8, BUN 18, Creatinine 1.02, Est GFR (Non-Af Amer) 79, BUN/Creatinine Ratio 17.6, Random Glucose 265 H D, Calcium 9.1 12/10/18 06:15: PT 35.8 H, INR (Anticoag Therapy) 3.81 H 12/10/18 06:15: Sodium 142, Plasma Sodium 143 H, Potassium 4.1, Chloride 104, Carbon Dioxide 27.4, Anion Gap 14.7 H, BUN 16, Creatinine 0.90, Est GFR (Non-Af Amer) 91, BUN/Creatinine Ratio 17.8, Random Glucose 135 H D, Calcium 8.4 Discharge Location: Home Disposition: Home self-care Condition: Stable Discharge Activity: Activity as tolerated Discharge Diet: Resume usual diet Referrals: Ashley Michelle MD [Primary Care Provider] - Prescriptions (Any new or edited meds): Benzonatate [Tessalon] 200 mg PO TID PRN #15 cap PRN Reason: Cough Doxycycline Hyclate [Vibratab] 100 mg PO BID #4 tab predniSONE [Prednisone] 40 mg PO DAILY #4 tab Complete Home Medications List: Complete Home Medication List: Baclofen 20 mg PO BID 04/26/17 Sennosides [Senokot] 17.2 mg PO DAILY 04/26/17 Baclofen 40 mg PO 1200 05/05/17 wheelchair See Dose Instructions .ROUTE .MEDSUPPLY #1 ea 06/01/18 tiZANidine HCL [Tizanidine HCl] 8 mg PO HS 06/14/18 quetiapine 25 mg tablet 25 mg PO HS #90 tab 06/18/18 hydrocodone 5 mg-acetaminophen 325 mg tablet 1 tab PO Q6H PRN #60 tab 07/03/18 clopidogrel 75 mg tablet 75 mg PO DAILY #90 tab 07/16/18 escitalopram 10 mg tablet 10 mg PO DAILY #90 tab 07/16/18 hydrochlorothiazide 12.5 mg tablet 12.5 mg PO DAILY #90 tab 07/16/18 warfarin 3 mg tablet 3 mg PO .Monday tab 08/13/18 warfarin 5 mg tablet 5 mg PO 6XW #72 tab 08/13/18 atorvastatin 40 mg tablet 40 mg PO DAILY #90 tab 09/12/18 amlodipine 5 mg tablet 5 mg PO DAILY #30 tab 11/19/18 Pregabalin [Lyrica] 100 mg PO BID 12/07/18 Benzonatate [Tessalon] 200 mg PO TID PRN #15 cap 12/10/18 Doxycycline Hyclate [Vibratab] 100 mg PO BID #4 tab 12/10/18 predniSONE [Prednisone] 40 mg PO DAILY #4 tab 12/10/18 Amb Orders for Discharge: Speech Therapy Eval and Treat Time Frame: 2 Weeks, Location: None Selected
[2018-12-10 14:43] VITALS: BP 112/78
[2018-12-12] MEDS ORDERED: WARFARIN SODIUM 3 MG TABLET PO SCH (17:00)
== END 2018-12-10 11:45 | disposition home or self-care (01) ==
LOC: ER 11:35 → MS 11:35
PROVIDERS: ADMIT Family Medicine; ATTEND Internal Medicine
CPT/HCPCS: 36415; 36600; 71010; 71045; 80048; 80053; 82803; 83519; 83605; 83880; 84145; 84484; 85025; 85610; 87040; 87400; 87449; 87633; 93005; 94640; 94664; 94760; 96365; 96366; 96367; 96375; 99285; G0378

== ENCOUNTER 2020-05-19 07:32 | Observation (INO) ==
[2020-05-19 08:06] LABS: Hematocrit 40.9 % (42.0-52.0); Hemoglobin 13.2 gm/dL (13.5-18.0); Mean Cell Volume 87.4 fl (78-100); Mean Corpuscular Hemoglobin 28.2 pg (27-31); Mean Corpuscular Hgb Conc 32.3 g/dl (32-36); Neutrophil % 76.2 % (42-75.0); Platelet Count 280 K/mm3 (150-450); Red Blood Count 4.68 M/mm3 (4.7-6.0); Red Cell Distribution Width 15.9 % (11.5-14.0); White Blood Count 10.6 K/mm3 (4.0-10.5)
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
[2020-05-19 08:24] LABS: INR 2.19 INR (0.92-1.08)
[2020-05-19 08:25] LABS: Albumin * 3.6 gm/dl (3.4-5.0); Anion Gap 16.8 mmol/L (6.8-13.8); BUN/Creatinine Ratio 22.5 (9.0-21.6); Bilirubin, Total 0.4 mg/dL (0.0-1.1); Ca. Corrected For Albumin 8.9 mg/dL (8.4-10.2); Calcium * 8.9 mg/dL (7.9-10.9); Carbon Dioxide 26.7 mmol/L (24-32.6); Potassium 5.5 mmol/L (3.4-4.6); Total Protein 7.2 gm/dL (6.2-8.2)
[2020-05-19 09:55] LABS: Urine Bilirubin Negative (NEGATIVE); Urine Blood Negative /ul (NEGATIVE); Urine Ketone Negative (NEGATIVE); Urine Nitrite Negative (NEGATIVE); Urine Protein Negative (NEGATIVE); Urine Urobilinogen Normal (NORMAL); Urine pH 5.5 pH (5.0-7.0)
[2020-05-19] MEDS ORDERED: cefTRIAXone SODIUM 1,000 MG/100 ML BAG IV ONE (09:55)
[2020-05-19 10:04] LABS: Urine Appearance Clear (CLEAR); Urine Bacteria None Seen; Urine Color Yellow; Urine RBC None Seen /hpf (0-5); Urine WBC 0-5 /hpf (0-5)
[2020-05-19] MEDS ORDERED: NORMAL SALINE 1,000 ML IV ONE (12:17)
[2020-05-19] MEDS: BACITRACIN ZINC 30 APPL TUBE TP SCH ×2 (13:12→21:23)
[2020-05-19] MEDS ORDERED: BACLOFEN 20 MG PO SCH (14:30)
--- NOTE | 2020-05-19 16:05 | HP ---
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 On the day of admission, the patient woke up around 4 AM and started shouting and acting very confused as per . The patient was all over the house, very restless and spilling coffee on him. The was afraid that he might have had a new stroke and so she called the EMS. In the emergency room he was then already awake alert oriented x3 and had no new symptoms except for some right- sided headache. The emergency room his vital signs in the morning was a blood pressure of 114/62, respiratory rate of 14, pulse rate of 77, oxygen saturation of 98% on room air. His white blood cell count was elevated at 10.6, hemoglobin 13.2, MCV of 87.4, potassium of 5.5, BUN/creatinine of 51 and 2.27. His CRP was 4.5 with procalcitonin of 0.20. His chest x-ray showed slightly haziness of the interstitiuml which could represent chronic interstitial change. A minor interstitial infiltrate such as viral or mycoplasma pneumonia or some borderline interstitial edema less difficult to exclude. His head CT scan showed no acute intracranial hemorrhage or mass-effect. No overall significant interval change from recent brain MRI. The previously noted findings involving the residual brain parenchyma are compatible with extensive cortical laminar necrosis and calcification. His urinalysis showed no evidence of urinary tract infection. His Covid testing was negative. His blood pressure started to drop down to 77/37. He received a total of 2 L in the emergency room and his blood pressure went up to 109/53 but started dropping again into the 80s and so the patient was admitted for observation. IV fluids was continued. He is currently awake alert oriented x3. Medical History (Last Reviewed 05/19/20 @ 14:06 by Dyan Marshall RN) CVA (cerebral vascular accident) Onset Date: ~07/2016 Nerve pain Onset Date: Unknown Pulmonary embolism Onset Date: ~08/2016 Surgical History: Surgical History (Last Reviewed 05/19/20 @ 14:06 by Dyan Marshall RN) History of back surgery Onset Date: Unknown Family History: Family History (Last Reviewed 05/19/20 @ 14:06 by Dyan Marshall RN) Father Heart disease Heart attack Diabetes Mother Alzheimers disease Myocardial infarction Heart disease Brother Diabetes Sister Myocardial infarction Social History: (Last Reviewed 05/19/20 @ 08:01 by Yessy Contreras RN) Social History: Marital status: household members: spouse current occupational status: disabled 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 Absent: Shortness of Breath, Orthopnea, Wheezing Cardiac: Absent: Chest Pain, Edema, Palpitations Abdominal: Absent: Nausea, Vomiting, Constipation, Diarrhea, Bright blood from rectum Genitourinary: Absent: Burning, Urgency, Frequency Musculoskeletal: Absent: Joint Pain, Back Pain Neurological: Present: Headache. Absent: Anxiety, Depressed Skin: Absent: Lesions, Rash Endocrine: Absent: Intolerance to Cold, Intolerance to Heat Misc: All systems neg except as marked Immunizations: IMMUNIZATION HX Immunizations Up to Date Yes History of Influenza Vaccine More Information Required Hx Pneumococcal Vaccination More Information Required Allergies/Adverse Reactions: Allergies Allergy/AdvReac Type Severity Reaction Status Date / Time No Known Allergies Allergy Verified 05/19/20 07:38 Home Medications: HOME MEDICATIONS Sennosides [Senokot] 17.2 mg PO DAILY 04/26/17 [Last Taken Unknown] wheelchair See Dose Instructions .ROUTE .MEDSUPPLY #1 ea 06/01/18 [Last Taken Unknown] tiZANidine HCL [Tizanidine HCl] 8 mg PO HS 06/14/18 [Last Taken Unknown] hydrochlorothiazide 12.5 mg tablet 25 mg PO DAILY #180 tab 05/13/19 [Last Taken Unknown] blood-glucose meter See Rx Instructions .ROUTE .MEDSUPPLY #1 ea 08/02/19 [Last Taken Unknown] baclofen 20 mg tablet 20 mg PO .COMPLEX tab 10/09/19 [Last Taken Unknown] quetiapine 25 mg tablet 25 mg PO HS #90 tab 11/20/19 [Last Taken Unknown] Pregabalin [Lyrica] 150 mg PO BID 11/26/19 [Last Taken Unknown] amlodipine 5 mg tablet 5 mg PO DAILY #90 tab 12/24/19 [Last Taken Unknown] metformin 500 mg tablet 500 mg PO BID #60 tab 12/27/19 [Last Taken Unknown] escitalopram oxalate 10 mg tablet See Rx Instructions .ROUTE .COMPLEX #90 unknown measurement unit code: not specified 04/07/20 [Last Taken Unknown] atorvastatin 40 mg tablet 60 mg PO DAILY 30 Days #45 tab 04/14/20 [Last Taken Unknown] hydrocodone 5 mg-acetaminophen 325 mg tablet 1 tab PO Q6H PRN #60 tab 04/15/20 [Last Taken Unknown] potassium chloride 20 mEq tablet,extended release 20 meq PO DAILY #30 tab 04/15/20 [Last Taken Unknown] lisinopril 20 mg tablet 20 mg PO DAILY #30 tab 04/21/20 [Last Taken Unknown] clopidogrel 75 mg tablet 75 mg PO DAILY #90 tab 04/30/20 [Last Taken Unknown] blood sugar diagnostic See Rx Instructions .ROUTE .COMPLEX #200 unknown measurement unit code: not specified 05/04/20 [Last Taken Unknown] mecobalamin (vitamin B12) 1,000 mcg chewable tablet 1,000 mcg PO DAILY #30 tab 05/08/20 [Last Taken Unknown] lancets See Rx Instructions .ROUTE .COMPLEX #200 unknown measurement unit code: not specified 05/14/20 [Last Taken Unknown] [place]-3 Fatty Acids/Fish Oil [Fish Oil 1,000 mg Capsule] 1 ea PO DAILY 05/19/20 [Last Taken Unknown] Warfarin Sodium [Coumadin] 3 mg PO 3XW 05/19/20 [Last Taken Unknown] Warfarin Sodium [Coumadin] 5 mg PO 3XW 05/19/20 [Last Taken Unknown] Exam - Exam Vital Signs: Vital Signs - Last Taken Temp 36.3 C 05/19/20 14:45 Pulse 83 05/19/20 14:45 Resp 16 05/19/20 14:45 BP 112/70 05/19/20 14:45 Pulse Ox 913 H 05/19/20 14:45 Constitutional: Present: Alert, Oriented x3, Cooperative ENT Exam: Present: hearing grossly normal Eye Exam: bilateral eye: normal inspection, PERRL, EOMI Neck: Present: supple. Absent: lymphadenopathy (R), lymphadenopathy (L) Respiratory: Present: decreased breath sounds, No rales, No wheezing Cardiovascular/Chest: Present: regular rate, rhythm, no JVD, no murmur Abdomen: Present: Normal bowel sounds, nontender, firm, distended Extremity: Present: no calf tenderness, pedal edema, other - Blister inner thigh Neurologic: Present: motor weakness Diagnostic Studies: Abnormal Lab Results 05/19/20 05/19/20 05/19/20 Range/Units 07:55 08:00 08:00 WBC 10.6 H (4.0-10.5) K/mm3 RBC 4.68 L (4.7-6.0) M/mm3 Hgb 13.2 L (13.5-18.0) gm/dL Hct 40.9 L (42.0-52.0) % RDW 15.9 H (11.5-14.0) % Immature Gran # (Auto) 0.04 H (0.000-0.0310) K/mm3 Neutrophils % 76.2 H (42-75.0) % Lymphocytes % 13.4 L (20-51) % Neutrophils # 8.0 H (1.3-6.0) K/mm3 Lymphocytes # 1.42 L (1.5-3.5) k/mm3 PT (9.1-10.7) Seconds INR (Anticoag Therapy) (0.92-1.08) INR Potassium 5.5 H D (3.4-4.6) mmol/L Anion Gap 16.8 H (6.8-13.8) mmol/L BUN 51 H D (6-23) mg/dL Creatinine 2.27 H D (0.4-1.4) mg/dL Est GFR (Non-Af Amer) 31 L D (60-130) mL/min BUN/Creatinine Ratio 22.5 H (9.0-21.6) Random Glucose 115 H (70-110) mg/dL C-Reactive Prot, Quant 4.5 H (0.0-0.9) mg/dL Hyaline Casts (NONE) /LPF 05/19/20 05/19/20 Range/Units 08:00 09:46 WBC (4.0-10.5) K/mm3 RBC (4.7-6.0) M/mm3 Hgb (13.5-18.0) gm/dL Hct (42.0-52.0) % RDW (11.5-14.0) % Immature Gran # (Auto) (0.000-0.0310) K/mm3 Neutrophils % (42-75.0) % Lymphocytes % (20-51) % Neutrophils # (1.3-6.0) K/mm3 Lymphocytes # (1.5-3.5) k/mm3 PT 21.0 H (9.1-10.7) Seconds INR (Anticoag Therapy) 2.19 H (0.92-1.08) INR Potassium (3.4-4.6) mmol/L Anion Gap (6.8-13.8) mmol/L BUN (6-23) mg/dL Creatinine (0.4-1.4) mg/dL Est GFR (Non-Af Amer) (60-130) mL/min BUN/Creatinine Ratio (9.0-21.6) Random Glucose (70-110) mg/dL C-Reactive Prot, Quant (0.0-0.9) mg/dL Hyaline Casts 10-25 H (NONE) /LPF Laboratory Results WBC 10.6 K/mm3 (4.0-10.5) H 05/19/20 08:00 RBC 4.68 M/mm3 (4.7-6.0) L 05/19/20 08:00 Hgb 13.2 gm/dL (13.5-18.0) L 05/19/20 08:00 Hct 40.9 % (42.0-52.0) L 05/19/20 08:00 MCV 87.4 fl (78-100) 05/19/20 08:00 MCH 28.2 pg (27-31) 05/19/20 08:00 MCHC 32.3 g/dl (32-36) 05/19/20 08:00 RDW 15.9 % (11.5-14.0) H 05/19/20 08:00 Plt Count 280 K/mm3 (150-450) 05/19/20 08:00 MPV 9.0 fl (8-11.3) 05/19/20 08:00 Immature Gran % (Auto) 0.40 % (0.001-0.429) 05/19/20 08:00 Immature Gran # (Auto) 0.04 K/mm3 (0.000-0.0310) H 05/19/20 08:00 Neutrophils % 76.2 % (42-75.0) H 05/19/20 08:00 Lymphocytes % 13.4 % (20-51) L 05/19/20 08:00 Monocytes % 7.3 % (0.0-9) 05/19/20 08:00 Eosinophils % 1.7 % (0.0-3.0) 05/19/20 08:00 Basophils % 1.0 % (0.0-1.0) 05/19/20 08:00 Nucleated RBC % 0.0 k/mm3 (0-1) 05/19/20 08:00 Neutrophils # 8.0 K/mm3 (1.3-6.0) H 05/19/20 08:00 Lymphocytes # 1.42 k/mm3 (1.5-3.5) L 05/19/20 08:00 Monocytes # 0.8 k/mm3 (0.0-1.0) 05/19/20 08:00 Eosinophils # 0.2 k/mm3 (0.0-0.7) 05/19/20 08:00 Absolute Basophils 0.1 k/mm3 (0.0-0.1) 05/19/20 08:00 PT 21.0 Seconds (9.1-10.7) H 05/19/20 08:00 INR (Anticoag Therapy) 2.19 INR (0.92-1.08) H 05/19/20 08:00 Sodium 139 mmol/L (132-142) 05/19/20 08:00 Plasma Sodium 139 mmol/L (130-142) 05/19/20 08:00 Potassium 5.5 mmol/L (3.4-4.6) H D 05/19/20 08:00 Chloride 101 mmol/L (97-106) 05/19/20 08:00 Carbon Dioxide 26.7 mmol/L (24-32.6) 05/19/20 08:00 Anion Gap 16.8 mmol/L (6.8-13.8) H 05/19/20 08:00 BUN 51 mg/dL (6-23) H D 05/19/20 08:00 Creatinine 2.27 mg/dL (0.4-1.4) H D 05/19/20 08:00 Est GFR (Non-Af Amer) 31 mL/min (60-130) L D 05/19/20 08:00 BUN/Creatinine Ratio 22.5 (9.0-21.6) H 05/19/20 08:00 Random Glucose 115 mg/dL (70-110) H 05/19/20 08:00 Lactic Acid, Venous 1.4 mmol/L (0.4-2.0) 05/19/20 07:55 Calcium 8.9 mg/dL (7.9-10.9) 05/19/20 08:00 Calcium Adj for Albumin 8.9 mg/dL (8.4-10.2) 05/19/20 08:00 Total Bilirubin 0.4 mg/dL (0.0-1.1) 05/19/20 08:00 AST 22 U/L (0-48) 05/19/20 08:00 ALT 36 U/L (19-67) 05/19/20 08:00 Alkaline Phosphatase 64 U/L (50-170) 05/19/20 08:00 C-Reactive Prot, Quant 4.5 mg/dL (0.0-0.9) H 05/19/20 07:55 Total Protein 7.2 gm/dL (6.2-8.2) 05/19/20 08:00 Albumin 3.6 gm/dl (3.4-5.0) 05/19/20 08:00 Procalcitonin 0.20 ng/mL (0.05-0.50) 05/19/20 07:55 Urine Color Yellow 05/19/20 09:46 Urine Appearance Clear (CLEAR) 05/19/20 09:46 Urine pH 5.5 pH (5.0-7.0) 05/19/20 09:46 Ur Specific [place] 1.020 SP.GR. (1.005-1.030) 05/19/20 09:46 Urine Protein Negative mg/dL (NEGATIVE) 05/19/20 09:46 Urine Glucose (UA) Negative mg/dL (NEGATIVE) 05/19/20 09:46 Urine Ketones Negative mg/dL (NEGATIVE) 05/19/20 09:46 Urine Blood Negative /ul (NEGATIVE) 05/19/20 09:46 Urine Nitrate Negative (NEGATIVE) 05/19/20 09:46 Urine Bilirubin Negative mg/dl (NEGATIVE) 05/19/20 09:46 Urine Urobilinogen Normal EU/dl (NORMAL) 05/19/20 09:46 Ur Leukocyte Esterase Negative /ul (NEGATIVE) 05/19/20 09:46 Urine RBC None seen /hpf (0-5) 05/19/20 09:46 Urine WBC 0-5 /hpf (0-5) 05/19/20 09:46 Ur Epithelial Cells 0-5 /hpf (0-5) 05/19/20 09:46 Urine Bacteria None seen (NONE) 05/19/20 09:46 Hyaline Casts 10-25 /LPF (NONE) H 05/19/20 09:46 Urine Culture Comments Culture to follow 05/19/20 09:46 SARS-CoV-2 (PCR) Not detected (ND) 05/19/20 09:58 Assessment/Plan - Narrative Narrative: Jose Antonio was admitted for confusion and hypotension. He also has an acute renal failure with a creatinine of 2.27 from 0.9 less than 2 weeks ago. It is likely prerenal. I did order a renal ultrasound which showed no hydronephrosis or suspicious focal mass. Therefore it is not post renal. Renal causes cannot be entirely ruled out although his urine was clear and therefore unlikely acute tubular necrosis, although he did have some hyaline cast. His confusion could be related to his acute renal failure ruled out transient ischemic encephalopathyc from low blood pressure. He did not have septic picture although his chest x-ray is showing possible interstitial change- viral versus interstitial edema.His hypotension could still also be volume related. He did say that he was under the sun and heat at one time and was not keeping up with his fluids. We will continue to hold his blood pressure medications and diuretic. If his kidney function and blood pressure do not improve by tomorrow we will get echocardiogram. We will add a BNP and a troponin to the labs that was drawn earlier in the emergency room. He does have a history of DVT and pulmonary embolism in the past but is unlikely due to to a distributive shock as his INR is therapeutic. His hypertension could also be due to autonomic dysfunction as his heart rate did not go up with the decrease in blood pressure. We will try to get an orthostatic blood pressure x1 if patient can stand up with his good extremity with assist. His hyperkalemia is secondary likely to acute renal failure and the fact that he also has potassium chloride for his home medication as he was on hydrochlorothiazide. We will hold that for now. We will get an EKG and give him Kayexalate. We will recheck BMP, CBC in the morning. We will have respiratory therapy to evaluate and treat with oxygen and nebulizer if needed. The patient says he smokes cigarettes for the last 60 years and is still smoking 1 pack/day. - Assessment/Plan (1) Hypotension Assessment: Likely volume related and also medication related Problem: Acute Qualifiers: Hypotension type: unspecified hypotension type Qualified Code(s): I95.9 - Hypotension, unspecified (2) Confusion Assessment: His altered mental status is likely due to ARF. Suspect transient ischemic encephalopathyc from low blood flow from hypotension Problem: Acute (3) Acute renal failure (ARF) Assessment: Likely prerenal volume related Problem: Acute Qualifiers: Acute renal failure type: unspecified Qualified Code(s): N17.9 - Acute kidney failure, unspecified (4) Hyperkalemia Assessment: Due to acute renal failure and potassium chloride supplement Problem: Acute (5) Diabetes mellitus Problem: Chronic Qualifiers: Diabetes mellitus type: type 2 Diabetes mellitus joint terminal attack controller insulin use: without prison use Diabetes mellitus complication status: without complica tion Qualified Code(s): E11.9 - Type 2 diabetes mellitus without complications (6) Hemiparesis affecting left side as late effect of stroke Problem: Chronic (7) CVA (cerebral vascular accident) Problem: Chronic Qualifiers: CVA mechanism: unspecified Qualified Code(s): I63.9 - Cerebral infarction, unspecified (8) History of pulmonary embolism Problem: Chronic (9) A-fib Problem: Chronic Qualifiers: Atrial fibrillation type: chronic (10) Hypertension Problem: Chronic Qualifiers: Hypertension type: essential hypertension Qualified Code(s): I10 - Essential (primary) hypertension
[2020-05-19] MEDS ORDERED: WARFARIN SODIUM 5 MG TABLET PO SCH (17:00)
[2020-05-19] MEDS ORDERED: SODIUM POLYSTYRENE SULFON/SORB 15 G/60 ML ORAL.SUSP PO ONE (17:10)
[2020-05-19] MEDS: INSULIN LISPRO 100 UNITS/ML VIAL SC SCH ×2 (17:19→21:21)
[2020-05-19] MEDS ORDERED: ALBUTEROL SULFATE 2.5 MG/0.5 ML VIAL.NEB IH PRN (17:28)
[2020-05-19 17:33] LABS: BNP * 39 pg/mL (5-175)
[2020-05-19 17:35] LABS: Troponin I Less than 0.017 ng/mL (0.00-0.10)
[2020-05-19] MEDS ORDERED: BACLOFEN 10 MG TABLET PO SCH (21:00)
[2020-05-19] MEDS ORDERED: SIMVASTATIN 10 MG TABLET PO SCH (21:00)
[2020-05-19] MEDS ORDERED: INSULIN GLARGINE,HUM.REC.ANLOG 100 UNITS/ML VIAL SC SCH (21:00)
[2020-05-19] MEDS: PREGABALIN 75 MG CAPSULE PO SCH (21:40)
[2020-05-19] MEDS ORDERED: HYDROcodone/ACETAMINOPHEN 1 EACH TABLET PO PRN (21:44)
[2020-05-19] MEDS ORDERED: ACETAMINOPHEN 325 MG TABLET PO PRN (21:45)
[2020-05-19] MEDS ORDERED: NORMAL SALINE 1,000 ML IV PRN (21:46)
[2020-05-19] MEDS ORDERED: HYDROcodone/ACETAMINOPHEN 1 EACH TABLET ONE (21:51)
[2020-05-20 07:10] LABS: Hematocrit 40.1 % (42.0-52.0); Mean Cell Volume 87.2 fl (78-100); Mean Corpuscular Hemoglobin 28.3 pg (27-31); Mean Corpuscular Hgb Conc 32.4 g/dl (32-36); Mean Platelet Volume 8.5 fl (8-11.3); Neutrophil # 4.3 K/mm3 (1.3-6.0); Neutrophil % 65.8 % (42-75.0); Platelet Count 263 K/mm3 (150-450); Red Cell Distribution Width 15.8 % (11.5-14.0); White Blood Count 6.5 K/mm3 (4.0-10.5)
[2020-05-20 07:17] LABS: Anion Gap 11.4 mmol/L (6.8-13.8); BUN/Creatinine Ratio 22.5 (9.0-21.6); Calcium * 8.2 mg/dL (7.9-10.9); Carbon Dioxide 27.7 mmol/L (24-32.6); Estimated Creat Clear 66.2; Potassium 4.1 mmol/L (3.4-4.6)
[2020-05-20 07:39] LABS: Prothrombin Time (Patient) 22.1 Seconds (9.1-10.7)
[2020-05-20 07:40] LABS: INR 2.31 INR (0.92-1.08)
[2020-05-20 07:41] LABS: Hemoglobin A1C 6.6 % (3.80-5.60)
[2020-05-20] MEDS: INSULIN LISPRO 100 UNITS/ML VIAL SC SCH ×2 (07:42→12:00)
--- NOTE | 2020-05-20 07:49 | DS ---
(1) Hypotension Problem: Resolved Qualifiers: Hypotension type: unspecified hypotension type Qualified Code(s): I95.9 - Hypotension, unspecified (2) Confusion Problem: Resolved (3) Acute renal failure (ARF) Problem: Resolved Qualifiers: Acute renal failure type: unspecified Qualified Code(s): N17.9 - Acute kidney failure, unspecified (4) Hyperkalemia Problem: Resolved (5) Diabetes mellitus Problem: Chronic Qualifiers: Diabetes mellitus type: type 2 Diabetes mellitus penitentiary insulin use: without penitentiary use Diabetes mellitus complication status: without complication Qualified Code(s): E11.9 - Type 2 diabetes mellitus without complications (6) Hemiparesis affecting left side as late effect of stroke Problem: Chronic (7) CVA (cerebral vascular accident) Problem: Chronic Qualifiers: CVA mechanism: unspecified Qualified Code(s): I63.9 - Cerebral infarction, unspecified (8) History of pulmonary embolism Problem: Chronic (9) A-fib Problem: Chronic Qualifiers: Atrial fibrillation type: chronic (10) Hypertension Problem: Chronic Qualifiers: Hypertension type: essential hypertension Qualified Code(s): I10 - Essential (primary) hypertension Date of Discharge:: 05/20/20 Hospital Course: Jose Antonio Lora is a 59-year-old white male with past medical history significant for 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 On the day of admission, the patient woke up around 4 AM and started shouting and acting very confused as per . The patient was all over the house, very restless and spilling coffee on him. The was afraid that he might have had a new stroke and so she called the EMS. In the emergency room he was then already awake alert oriented x3 and had no new symptoms except for some right- sided headache. The emergency room his vital signs in the morning was a blood pressure of 114/62, respiratory rate of 14, pulse rate of 77, oxygen saturation of 98% on room air. His white blood cell count was elevated at 10.6, hemoglobin 13.2, MCV of 87.4, potassium of 5.5, BUN/creatinine of 51 and 2.27. His CRP was 4.5 with procalcitonin of 0.20. His chest x-ray showed slightly haziness of the interstitiuml which could represent chronic interstitial change. A mild interstitial infiltrate such as viral or mycoplasma pneumonia or some borderline interstitial edema less difficult to exclude. His head CT scan showed no acute intracranial hemorrhage or mass-effect. No overall significant interval change from recent brain MRI. The previously noted findings involving the residual brain parenchyma are compatible with extensive cortical laminar necrosis and calcification. His urinalysis showed no evidence of urinary tract infection. His Covid testing was negative. His blood pressure started to drop down to 77/37. He received a total of 2 L in the emergency room and his blood pressure went up to 109/53 but started dropping again into the 80s and so the patient was admitted for observation. IV fluids was continued. He already took his BP medications at home. His Inluenza A/B were negative. His EKG showed NSR with RBBB, negative troponin. BNP was 39. He was started on O2 2L NC as his O2 saturation went down. This morning he is saturating 100 % on RA and his BP is 94/55 and his Cr is back to baseline. He is currently awake alert oriented x3. Will continue IVF at 100 ml/hour and if SBP remain above 90 will discharge today. It will take about 3-5 days for his BP medications (Amlopidine. Lisinopril, HCTZ) to get out of his system. His hypotension is due to his hypovolemia from dehydration on top of his BP medications. He is likely now euvolemic as his Cr is bact to his baseline and his low BP is likely due to his BP meds still lingering around. Procedures Performed: none Results and Findings: Lab Pending Results 05/19/20 07:55: Lactic Acid, Venous 1.4 05/19/20 07:55: C-Reactive Prot, Quant 4.5 H 05/19/20 07:55: Procalcitonin 0.20 05/19/20 08:00: WBC 10.6 H, RBC 4.68 L, Hgb 13.2 L, Hct 40.9 L, MCV 87.4, MCH 28.2, MCHC 32.3, RDW 15.9 H, Plt Count 280, MPV 9.0, Immature Gran % (Auto) 0.40, Immature Gran # (Auto) 0.04 H, Neutrophils % 76.2 H, Lymphocytes % 13.4 L, Monocytes % 7.3, Eosinophils % 1.7, Basophils % 1.0, Nucleated RBC % 0.0, Ne utrophils # 8.0 H, Lymphocytes # 1.42 L, Monocytes # 0.8, Eosinophils # 0.2, Absolute Basophils 0.1 05/19/20 08:00: Sodium 139, Plasma Sodium 139, Potassium 5.5 H D, Chloride 101, Carbon Dioxide 26.7, Anion Gap 16.8 H, BUN 51 H D, Creatinine 2.27 H D, Est GFR (Non-Af Amer) 31 L D, BUN/Creatinine Ratio 22.5 H, Random Glucose 115 H, Calcium 8.9, Calcium Adj for Albumin 8.9, Total Bilirubin 0.4, AST 22, ALT 36, Alkaline Phosphatase 64, Total Protein 7.2, Albumin 3.6 05/19/20 08:00: PT 21.0 H, INR (Anticoag Therapy) 2.19 H 05/19/20 08:00: Troponin I Less than 0.017, B-Natriuretic Peptide 39 05/19/20 09:46: Urine Color Yellow, Urine Appearance Clear, Urine pH 5.5, Ur Specific [place] 1.020, Urine Protein Negative, Urine Glucose (UA) Negative, Urine Ketones Negative, Urine Blood Negative, Urine Nitrate Negative, Urine Bilirubin Negative, Urine Urobilinogen Normal, Ur Leukocyte Esterase Negative, Urine RBC None seen, Urine WBC 0-5, Ur Epithelial Cells 0-5, Urine Bacteria None seen, Hyaline Casts 10-25 H, Urine Culture Comments Culture to follow 05/19/20 09:58: SARS-CoV-2 (PCR) Not detected 05/19/20 17:30: Influenza Type A Ag Negative, Influenza Type B Ag Negative 05/20/20 07:00: WBC 6.5 D, RBC 4.60 L, Hgb 13.0 L, Hct 40.1 L, MCV 87.2, MCH 28.3, MCHC 32.4, RDW 15.8 H, Plt Count 263, MPV 8.5, Immature Gran % (Auto) 0.30, Immature Gran # (Auto) 0.02, Neutrophils % 65.8, Lymphocytes % 21.0, Monocytes % 8.6, Eosinophils % 3.4 H, Basophils % 0.9, Nucleated RBC % 0.0, Neutrophils # 4.3, Lymphocytes # 1.37 L, Monocytes # 0.6, Eosinophils # 0.2, Absolute Basophils 0.1 05/20/20 07:00: Sodium 140, Plasma Sodium 140, Potassium 4.1 D, Chloride 105, Carbon Dioxide 27.7, Anion Gap 11.4, BUN 23 D, Creatinine 1.02, Est GFR (Non-Af Amer) 79 D, BUN/Creatinine Ratio 22.5 H, Random Glucose 111 H, Calcium 8.2 05/20/20 07:00: Mean Blood Glucose 143, Hemoglobin A1c 6.6 H 05/20/20 07:00: PT 22.1 H, INR (Anticoag Therapy) 2.31 H Discharge Location: Home Disposition: Home self-care Condition: Fair Discharge Activity: Activity as tolerated Discharge Diet: Consistent carbs Referrals: Ashley Michelle MD [Primary Care Provider] - Additional Patient Instructions (free text): Follow up with PCP on Mondayo. Encourage to increase oral fluids. Prescriptions (Any new or edited meds): Albuterol Sulfate [Albuterol Sulfate 2.5 MG/0.5ML] 2.5 mg INHALATION Q4H PRN #7 vial.neb PRN Reason: Shortness Of Breath/Wheezing Transmission Status: Pending to [place], [place] Bacitracin Zinc [Bacitracin] 1 appl TOPICAL BID #1 tube Transmission Status: Pending to [place], [place] Acetaminophen [Tylenol] 650 mg PO Q6H PRN #30 tab PRN Reason: Mild Pain (Pain Scale 1-3) Transmission Status: Pending to [place], [place] Complete Home Medications List: Complete Home Medication List: Sennosides [Senokot] 17.2 mg PO DAILY 04/26/17 wheelchair See Dose Instructions .ROUTE .MEDSUPPLY #1 ea 06/01/18 tiZANidine HCL [Tizanidine HCl] 8 mg PO HS 06/14/18 hydrochlorothiazide 12.5 mg tablet 25 mg PO DAILY #180 tab 05/13/19 blood-glucose meter See Rx Instructions .ROUTE .MEDSUPPLY #1 ea 08/02/19 baclofen 20 mg tablet 20 mg PO .COMPLEX tab 10/09/19 quetiapine 25 mg tablet 25 mg PO HS #90 tab 11/20/19 Pregabalin [Lyrica] 150 mg PO BID 11/26/19 amlodipine 5 mg tablet 5 mg PO DAILY #90 tab 12/24/19 metformin 500 mg tablet 500 mg PO BID #60 tab 12/27/19 escitalopram oxalate 10 mg tablet See Rx Instructions .ROUTE .COMPLEX #90 unknown measurement unit code: not specified 04/07/20 atorvastatin 40 mg tablet 60 mg PO DAILY 30 Days #45 tab 04/14/20 hydrocodone 5 mg-acetaminophen 325 mg tablet 1 tab PO Q6H PRN #60 tab 04/15/20 potassium chloride 20 mEq tablet,extended release 20 meq PO DAILY #30 tab 04/15/20 lisinopril 20 mg tablet 20 mg PO DAILY #30 tab 04/21/20 clopidogrel 75 mg tablet 75 mg PO DAILY #90 tab 04/30/20 blood sugar diagnostic See Rx Instructions .ROUTE .COMPLEX #200 unknown measurement unit code: not specified 05/04/20 mecobalamin (vitamin B12) 1,000 mcg chewable tablet 1,000 mcg PO DAILY #30 tab 05/08/20 lancets See Rx Instructions .ROUTE .COMPLEX #200 unknown measurement unit code: not specified 05/14/20 [place]-3 Fatty Acids/Fish Oil [Fish Oil 1,000 mg Capsule] 1 ea PO DAILY 05/19/20 Acetaminophen [Tylenol] 650 mg PO Q6H PRN #30 tab 05/20/20 Albuterol Sulfate [Albuterol Sulfate 2.5 MG/0.5ML] 2.5 mg INHALATION Q4H PRN #7 vial.neb 05/20/20 Bacitracin Zinc [Bacitracin] 1 appl TOPICAL BID #1 tube 05/20/20 Warfarin Sodium [Coumadin] 3 mg PO [id number]@1700 tablet 05/20/20 Warfarin Sodium [Coumadin] 5 mg PO TuThSa@1700 tablet 05/20/20 Forms: Patient Portal Registration
--- NOTE | 2020-05-20 07:56 | PN ---
Progess Note - Interim Date: 05/20/20 Time: 07:53 Narrative: 05/20/20 07:53 patient AAO x3. BP 94/55. if BP remain above SBP 90 will discharge patient and will hold his BP medications for 3-5 days base on their half agatha. will increase IVF to 100 ml/hour x 500 ml more. his Cr is back to baseline.
[2020-05-20] MEDS: BACITRACIN ZINC 30 APPL TUBE TP SCH (08:11)
[2020-05-20] MEDS: BACLOFEN 10 MG TABLET PO SCH ×2 (08:12→13:56)
[2020-05-20] MEDS: PREGABALIN 75 MG CAPSULE PO SCH (08:14)
[2020-05-20] MEDS ORDERED: SENNOSIDES 8.6 MG TABLET PO SCH (09:00)
[2020-05-20] MEDS ORDERED: CLOPIDOGREL BISULFATE 75 MG TABLET PO SCH (09:00)
[2020-05-20] MEDS ORDERED: CYANOCOBALAMIN 1,000 MCG TABLET PO SCH (09:00)
[2020-05-20] MEDS ORDERED: POTASSIUM CHLORIDE 20 MEQ TABLET.SA PO SCH (09:00)
[2020-05-20 14:45] VITALS: BP 109/64
[2020-05-20] MEDS ORDERED: WARFARIN SODIUM 3 MG TABLET PO SCH (17:00)
== END 2020-05-20 15:45 | disposition home or self-care (01) ==
LOC: ER 07:32 → MS 07:32
PROVIDERS: ADMIT Internal Medicine; ATTEND Internal Medicine
DX: E11.22 Type 2 diabetes mellitus with diabetic chronic kidney disease; R41.0 Disorientation, unspecified; T24.211A Burn of second degree of right thigh, initial encounter; F17.210 Nicotine dependence, cigarettes, uncomplicated; Z86.711 Personal history of pulmonary embolism; I13.10 Hypertensive heart and chronic kidney disease without heart failure, with stage 1 through stage 4 chronic kidney disease, or unspecified chronic kidney disease; N18.9 Chronic kidney disease, unspecified; Z79.01 Long term (current) use of anticoagulants; I48.20 Chronic atrial fibrillation, unspecified; I95.9 Hypotension, unspecified; T31.0 Burns involving less than 10% of body surface; N17.9 Acute kidney failure, unspecified; I69.354 Hemiplegia and hemiparesis following cerebral infarction affecting left non-dominant side; E87.5 Hyperkalemia; X10.0XXA Contact with hot drinks, initial encounter